=== PATIENT | female | born 1990 | race Caucasian/White ===

== ENCOUNTER 2019-04-25 15:12 | Outpatient (CLI) | payer OTHER, SELFPAY ==
[2019-04-25 15:32] LABS: Basophils Percent Auto 0.2 % (0.2-1.2); Eosinophils Absolute Auto 0.1 K/mm3 (0-0.3); Eosinophils Percent Auto 1.1 % (0-4.4); Hematocrit 40.4 % (37.0-47.0); Hemoglobin 13.7 g/dL (12.0-15.0); Immature Granulocyte Absolute 0.05 K/mm3 (0.00-0.031); Immature Granulocyte Percent A 0.5 % (0-0.5); Lymphocytes Absolute Auto 1.92 K/mm3 (0.9-3.2); Lymphocytes Percent Auto 19.3 % (18.3-44.2); Mean Corpuscular HGB Conc 33.9 g/dl (32-36); Mean Corpuscular Hemoglobin 31.7 pg (26-34); Mean Corpuscular Volume 93.5 fl (80-100); Mean Platelet Volume 11.1 fl (7.4-10.4); Monocytes Absolute Auto 0.6 K/mm3 (0.1-0.6); Monocytes Percent Auto 6.4 % (2.6-8.5); Neutrophils Absolute Auto 7.2 K/mm3 (1.3-6.7); Neutrophils Percent Auto 72.5 % (45.5-73.1); Platelet Count Result 249 k/mm3 (150-375); Red Blood Count 4.32 M/mm3 (4.2-5.4); Red Cell Distribution Width 12.6 % (11.5-14.5)
== END 2019-04-25 15:13 | disposition home or self-care (01) ==
LOC: ANHSURGERY 15:15
PROVIDERS: PCP Internal Medicine; Visit Provider Obstetrics & Gynecology
DX: N92.6 Irregular menstruation, unspecified (principal)
CPT/HCPCS: 36415; 85025; 86850; 86900; 86901

== ENCOUNTER 2019-05-04 00:51 | Day surgery (SDC) | payer OTHER, SELFPAY ==
[2019-04-23 15:47] VITALS: BMI 30.5
--- NOTE | 2019-05-02 08:53 | PM.IMHP ---
H&P: HPI History of Present Illness Chief complaint: uterine prolapse, pelvic pain, irreg bleeding Narrative: Britany Naqvi is a 28 year old female who is admitted for robotic total vaginectomy and bilateral salpingectomy. She has uterine prolapse. She has had pain, discomfort, and dyspareunia. She has undergone tubal ligation and passed. Ultrasound shows mildly enlarged uterus. She finds this to be debilitating and S for definitive therapy. Risks and benefits reviewed including but not exclusive of , aspiration pneumonia, bleeding, transfusion perforation of bowel bladder ureters or other internal organs need for laparotomy. She voiced understanding. She had all questions answered. She asked to proceed Review of Systems Review of Systems: All systems reviewed & are unremarkable except as noted in HPI and below PMFSH Family History Family History Grandparent Family history of gallbladder disease Father Asthma Mother Patient's mother is in good health Other Cerebrovascular accident Diabetes mellitus Social History Social History Smoking status: Never smoker Alcohol intake: never Meds Home Medications and Allergies Home Medications Medication Instructions Recorded Confirmed Type No Home Medications 04/23/19 04/23/19 History Allergies Allergy/AdvReac Type Severity Reaction Status Date / Time No Known Allergies Allergy Unverified 04/23/19 15:36 Exam Const: General: no acute distress Eyes: General: appearance normal, both eyes and all related structures Neck: Neck: supple and no JVD Thyroid: thyroid normal Resp: Effort & Inspection: normal respiratory effort Auscultation: clear to auscultation bilaterally Cardio: Rate: regular rate Rhythm: regular rhythm GI: Inspection: non-distended GI Palp: Yes Soft to palpation, No Tenderness to palpation present (GI) and No Guarding due to palpation present (GI) Auscultation: normal bowel sounds : External Female Exam: normal external appearance Speculum Exam - Vagina: normal appearance of the vagina Speculum Exam - Cervix: normal appearance of the cervix ( second-degree prolapse is present) Bimanual Exam- Adnexa, other: no masses Skin: General skin exam: no rashes or lesions noted Extrem: General: normal to inspection and no edema Psych: Mental Status: mental status grossly normal Affect: normal affect Assessment and Plan Additional Plan impression: Pelvic prolapse and pain Plan: Robotic total vaginal hysterectomy and bilateral salpingectomy.
[2019-05-04] VITALS (13 sets, daily range): BP systolic 113–135; BP diastolic 55–84; PULSE 52–76; RESP 12–19; TEMP 36.3–37.1; O2SAT 96–100
[2019-05-04] MEDS: LACTATED RINGERS 1,000 ML 30 ML IV CONT ×2 (06:50→09:40)
--- NOTE | 2019-05-04 06:59 | WPDHPUPDATE1 ---
History and Physical Update Update Date/Time: 05/04/19 06:59 History and Physical has been reviewed, including an updated exam of the patient. There are NO changes in the patient's condition. Risks, benefits, and alternatives have been discussed and questions answered. Patient agrees to proceed with procedure.
--- NOTE | 2019-05-04 07:19 | WPDANESEPPF ---
Anes - Initial Pre Proc Eval Procedure: Operation Date: 05/04/19 08:30 Proposed Procedures p Robotic Assisted Total Vaginal Hysterectomy, Bilateral Salpingectomy - Dajuan Gongora MD Date/Time: 05/04/19 07:19 Surgeon: Dajuan Gongora MD Pre Op Diagnosis: uterine prolapse, pelvic pain, irreg bleeding Patient Data Age: 28 Gender: F Height: 1.57 m Weight: 75.75 kg Allergies Allergy/AdvReac Type Severity Reaction Status Date / Time No Known Allergies Allergy Unverified 04/23/19 15:36 Home Medications Medication Instructions Recorded Confirmed Type hydrocodone-acetaminophen [[place]] 1 tablet PO Q4H PRN #30 tablet 05/04/19 Rx Patient hx anesthesia problems: none Family hx anesthesia problems: none PMFSH Past Medical History Medical History (Updated 05/04/19 @ 07:21 by Levar Connolly MD) Obesity Uterine prolapse Family History Family History Grandparent Family history of gallbladder disease Father Asthma Mother Patient's mother is in good health Other Cerebrovascular accident Diabetes mellitus Social History Social History Smoking status: Never smoker Alcohol intake: never Anes - Eval Final PreProcedure Day of Procedure 05/04/19 07:19 Patient weight: obese Heart: regular rate and rhythm Lungs: clear to auscultation and normal air movement Airway: Mallampati scale class II Neurological: alert and oriented Last oral intake: >/= 8 hours ASA classification: II Emergent: no Anesthetic plan: proceed Anesthesia type and monitoring: general ETT Informed Consent: The patient's anesthetic plan and its attendant risks and benefits were discussed with the patient/family/POA. Questions were solicited and answers provided to the satisfaction of the patient/family/POA.
[2019-05-04] MEDS: ceFAZolin 2 GM/D5W 50 ML 2 GM/50 ML BAG IVPB (07:58)
[2019-05-04] MEDS: IBUPROFEN IV 800 MG/200 ML 800 MG/200 ML BAG 400 MG IVPB (08:12)
--- NOTE | 2019-05-04 09:18 | P.OP_ITS ---
Procedure Note - Detailed Date of procedure: 05/04/19 Pre-op diagnosis: uterine prolapse, pelvic pain, irreg bleeding Surgeon: Dajuan Gongora MD Postop diagnosis: Uterine prolapse, pelvic pain, irregular bleeding Procedure: Robotic total vaginal hysterectomy and bilateral salpingectomy EBL: 50cc Complications none Findings: Enlarged uterus, adhesions from omentum to the anterior abdominal, tubes status post tubal ligation, normal-appearing ovaries Description of procedure: The patient was prepped and draped in the sterile fashion placed in the dorsal lithotomy position under excellent general trach anesthesia a weighted speculum was placed in posterior fornix of vagina. Anterior lip of the cervix grasped with single-tooth tenaculum. The uterus sounded to 9cm. Serial dilatation with fragmented dilators performed. This was followed by passing the 8. GAGE and number 2-1/2 cold cup. A 16 [place] catheter was placed draining clear urine. The weighted speculum was removed. Gloves were changed. A supraumbilical incision made in the Veress needle passed in the abdomen. Abdomen was filled with CO2 gas [id number]. The 8mm trocar advanced in the abdomen. Downside visualized. No injury seen. The patient placed in Trendelenburg and right and left lateral quadrant incisions made. The 8mm trocars were advanced through these incisions under direct visualization assuring no injury. A right upper quadrant incision was made and the 10mm trocar advanced under direct position assuring no injury the robot was docked. Attention was turned to the mental health counselor. The left round ligament was grasped. Cut. After of cauterization. A bladder flap was formed anteriorly. The bladder was noted to be somewhat adherent to more superiorly to the uterus and normal from her previous . This was taken down layer by layer until it could be clearly delineated and brought down caudally from the uterus. This was taken to the opposite round ligament which was clamped, burned, cut. Next the left fallopian tube portion was skeletonized and removed. This was repeated on the contralateral side. Conserving the left ovary the utero-ovarian ligament on the left was clamped, burned, cut and brought to the level of the previously cut round ligament. In like fashion on the right the after the fallopian tube in removed. The utero-ovarian ligaments clamped, cut, and burned. In brought to Little appears cut round ligament. The cardinal and broad ligaments on the left were serially skeletonized using sharp dissection and cautery. This was brought down to the level of the uterine vessels on the left these were large tortuous and as was expected. These were 0 individually clamped, burned, cut. This once hemostasis was assured on the left the right cardinal broad ligaments were serially skeletonized clamped, burned, cut and brought down lateral edge of the uterus and cervix until the uterine vessels on the left could be on the right could be easily visualized these were individually clamped, burned, cut. Blanching the uterus was noted a colpotomy incision was made in the cervix uterus portion of tube removed through the vagina. Blood loss was about 50cc at that point her last the vagina was then closed with continuous running 0V lock from lateral edge to lateral edge met the midline. Irrigation was undertaken until clear. All pedicles appeared hemostatic. The raw areas with vaginal cuff Striegel with the meter. The trocar sites were after was undocked. Prior to this gas min and incisions were closed with [place] Monocryl glue. The patient was awakened. She went to recovery in satisfactory condition. All sponge, needle, instrument counts were correct. There were no immediate complications
[2019-05-04] MEDS: ONDANSETRON INJ 4 MG/2 ML VIAL IV PUSH (09:46)
[2019-05-04] MEDS: DEXTROSE 5%/0.45% SOD CHL 1,000 ML 125 ML IV CONT (11:25)
--- NOTE | 2019-05-04 11:30 | PC.NURSE ---
This patient, Britany Naqvi, was received from PACU per bed to room 289 on 05/04/19 at 1045. Patient/family oriented to unit policies and routines
[2019-05-04] MEDS: ENOXAPARIN 40 MG/0.4 ML SYRINGE SUB-Q (13:22)
[2019-05-04] MEDS: IBUPROFEN 600 MG TABLET PO (21:32)
[2019-05-05 00:18] VITALS: BP 100/65; PULSE 58; RESP 12; TEMP 36.6
[2019-05-05 04:05] VITALS: BP 102/64; PULSE 58; RESP 12; TEMP 36.5
[2019-05-05 05:53] LABS: Basophils Percent Auto 0.3 % (0.2-1.2); Eosinophils Absolute Auto 0.1 K/mm3 (0-0.3); Eosinophils Percent Auto 0.6 % (0-4.4); Hematocrit 35.8 % (37.0-47.0); Hemoglobin 12.2 g/dL (12.0-15.0); Immature Granulocyte Absolute 0.09 K/mm3 (0.00-0.031); Immature Granulocyte Percent A 0.6 % (0-0.5); Lymphocytes Absolute Auto 1.42 K/mm3 (0.9-3.2); Lymphocytes Percent Auto 9.9 % (18.3-44.2); Mean Corpuscular HGB Conc 34.1 g/dl (32-36); Mean Platelet Volume 11.9 fl (7.4-10.4); Monocytes Absolute Auto 1.2 K/mm3 (0.1-0.6); Monocytes Percent Auto 8.6 % (2.6-8.5); Neutrophils Absolute Auto 11.5 K/mm3 (1.3-6.7); Platelet Count Result 214 k/mm3 (150-375); Red Blood Count 3.81 M/mm3 (4.2-5.4); Red Cell Distribution Width 12.4 % (11.5-14.5); White Blood Count 14.3 K/mm3 (4.5-10.0)
[2019-05-05] MEDS: DOCUSATE SODIUM 100 MG CAPSULE PO (07:37)
[2019-05-05] MEDS: IBUPROFEN 600 MG TABLET PO (07:39)
[2019-05-05 07:40] VITALS: BP 116/66; PULSE 61; RESP 18; TEMP 36.4
[2019-05-05] MEDS: ENOXAPARIN 40 MG/0.4 ML SYRINGE SUB-Q (07:41)
--- NOTE | 2019-05-05 09:33 | PM.GYNPNOP ---
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 Doing well. P: Home to f/u 2 weeks. Time Spent With Patient Time with patient: less than 15 minutes QUILTING SUPERVISOR- PN:Subj Post-Op Subjective Date/time seen: 05/05/19 09:33 Interval history: Pain OK. Tolerating diet. Voiding. Would like to go home. Exam Narrative: Exam Narrative: AVSS I/O OK ABD soft, nontender. Incisions c/d/i. EXT nontender QUILTING SUPERVISOR - PN: Obj Data Vital Signs Vital Signs: Vital Signs - 24 hr 05/04/19 09:40 05/04/19 09:55 05/04/19 10:10 Temperature 36.9 C Pulse Rate 63 58 L 59 L Respiratory Rate 16 19 15 Blood Pressure 122/77 135/78 119/71 Pulse Oximetry 98 100 100 05/04/19 10:25 05/04/19 10:34 05/04/19 10:50 Temperature 37.0 C Pulse Rate 62 52 L Respiratory Rate 16 15 16 Blood Pressure 124/62 123/69 122/78 Pulse Oximetry 99 99 99 05/04/19 11:00 05/04/19 11:30 05/04/19 12:00 Temperature 37.0 C Pulse Rate 60 57 L 58 L Respiratory Rate 16 16 16 Blood Pressure 135/79 124/68 121/84 Pulse Oximetry 97 100 100 05/04/19 13:00 05/04/19 14:00 05/04/19 19:49 Temperature 37.1 C 36.8 C Pulse Rate 58 L 58 L 58 L Respiratory Rate 16 16 12 Blood Pressure 123/76 124/73 113/72 Pulse Oximetry 98 96 05/05/19 00:18 05/05/19 04:05 05/05/19 07:40 Temperature 36.6 C 36.5 C 36.4 C Pulse Rate 58 L 58 L 61 Respiratory Rate 12 12 18 Blood Pressure 100/65 102/64 116/66 Pulse Oximetry Intake/Output Intake/Output: Intake & Output 05/02/19 05/03/19 05/04/19 05/05/19 23:59 23:59 23:59 23:59 Intake Total 2890 1400 Output Total 303 0674 Balance 2215 -550 Meds/Results Medications: Active Medications Generic Name Dose Route Start Last Admin Trade Name Freq PRN Reason Stop Dose Admin Hydrocodone Bitart/Acetaminophen 1 tab 05/04/19 10:40 05/05/19 07:38 [place] 5-325 Mg PO 1 tab Q3H PRN Administration Pain Rated 5 or Less Hydrocodone Bitart/Acetaminophen 1 tab 05/04/19 10:40 [place] 10-325 Mg PO Q3H PRN Pain Rated 6 or Greater Docusate Sodium 100 mg 05/04/19 10:40 05/05/19 07:37 Colace Capsule PO 100 mg BID LINDA Administration Enoxaparin Sodium 40 mg 05/04/19 10:40 05/05/19 07:41 Lovenox SUB-Q 40 mg DAILY LINDA Administration Dextrose/Sodium Chloride 1,000 mls @ 125 mls/hr 05/04/19 10:40 05/04/19 19:30 Dextrose 5% Sodium Chloride 0.45% IV CONT Infused .Q8H LINDA Infusion Ibuprofen 600 mg 05/04/19 10:40 05/05/19 07:39 Motrin PO 600 mg Q6H PRN Administration Cramping Ketorolac Tromethamine 30 mg 05/04/19 10:40 Toradol Inj IV PUSH 05/09/19 10:41 Q6H PRN Pain Rated 4-6 Naloxone HCl 0.1 mg 05/04/19 10:40 Narcan IV PUSH Q2M PRN Respiratory rate less than 10 Ondansetron HCl 4 mg 05/04/19 10:40 Zofran Inj IV PUSH Q6H PRN Nausea And Vomiting Simethicone 80 mg 05/04/19 10:40 Mylicon PO Q2H PRN Gas Labs CBC & Chem 7: 05/05/19 04:02 Labs: Laboratory Results - last 24 hr 05/05/19 04:02 WBC 14.3 H RBC 3.81 L Hgb 12.2 Hct 35.8 L MCV 94.0 MCH 32.0 MCHC 34.1 RDW 12.4 Plt Count 214 MPV 11.9 H Immature Gran % (Auto) 0.6 H Neut % (Auto) 80.0 H Lymph % (Auto) 9.9 L [place] % (Auto) 8.6 H Eos % (Auto) 0.6 Baso % (Auto) 0.3 Lymph # (Auto) 1.42 [place] # (Auto) 1.2 H Eos # (Auto) 0.1 Baso # (Auto) 0.0 Abs Immat Gran (auto) 0.09 H Absolute Neuts (auto) 11.5 H Absolute Nucleated RBC 0.0 Nucleated RBC % 0.0
--- NOTE | 2019-05-05 09:38 | P.DS_ITS ---
DS: Diagnosis Admitting Diagnosis Admitting Diagnosis: Pelvic pain Uterine prolapse Irregular vaginal bleeding DS: Data Data Completed and Pending Pending studies at discharge: Pending at discharge 05/04/19 09:36 Surgical [PTH] Routine Labs on day of discharge: Labs from last 24 hours 05/05/19 04:02 WBC 14.3 H RBC 3.81 L Hgb 12.2 Hct 35.8 L MCV 94.0 MCH 32.0 MCHC 34.1 RDW 12.4 Plt Count 214 MPV 11.9 H Immature Gran % (Auto) 0.6 H Neut % (Auto) 80.0 H Lymph % (Auto) 9.9 L [place] % (Auto) 8.6 H Eos % (Auto) 0.6 Baso % (Auto) 0.3 Lymph # (Auto) 1.42 [place] # (Auto) 1.2 H Eos # (Auto) 0.1 Baso # (Auto) 0.0 Abs Immat Gran (auto) 0.09 H Absolute Neuts (auto) 11.5 H Absolute Nucleated RBC 0.0 Nucleated RBC % 0.0 Discharge Plan Discharge Patient Disposition: Home, Self-Care Discharge Instructions: Call or return if temperature above 100.4? F, increased abdominal pain, increased vaginal bleeding or any new problems. Stand Alone Forms: General Discharge Instructions Follow-up/Referrals: Dajuan Gongora MD [Physician] - (2 weeks) Discharge Medications: New hydrocodone-acetaminophen [[place]] 5-325 mg tablet 1 tablet PO Q4H PRN (Reason: pain) Qty: 30 RF: 0 Primary Care Provider: KimberlyRobbin Attending physician on admission: Dajuan Gongora
--- NOTE | 2019-05-05 09:49 | P.PNAN_ITS ---
Anes - Prog Note Post-Op Date/Time: 05/05/19 09:49 Cardiovascular status: normal Respiratory status: normal Airway patency: baseline Mental status: baseline Post-Op hydration status: normal Vital Signs: Last Vital Signs Temp 36.4 C 05/05/19 07:40 Pulse 61 05/05/19 07:40 Resp 18 05/05/19 07:40 BP 116/66 05/05/19 07:40 Pulse Ox 96 05/04/19 14:00 I/O: Intake & Output 05/04/19 05/05/19 05/05/19 23:59 07:59 15:59 Intake Total 1000 1400 Output Total 1950 Balance 1000 -550 Laboratory Tests 05/05/19 04:02 05/05/19 04:02 WBC 14.3 H RBC 3.81 L Hgb 12.2 Hct 35.8 L MCV 94.0 MCH 32.0 MCHC 34.1 RDW 12.4 Plt Count 214 MPV 11.9 H Immature Gran % (Auto) 0.6 H Neut % (Auto) 80.0 H Lymph % (Auto) 9.9 L [place] % (Auto) 8.6 H Eos % (Auto) 0.6 Baso % (Auto) 0.3 Lymph # (Auto) 1.42 [place] # (Auto) 1.2 H Eos # (Auto) 0.1 Baso # (Auto) 0.0 Abs Immat Gran (auto) 0.09 H Absolute Neuts (auto) 11.5 H Absolute Nucleated RBC 0.0 Nucleated RBC % 0.0 Post-procedural complaints: none Patient Feedback: Patient satisfied with anesthetic care.
== END 2019-05-05 10:07 | disposition home or self-care (01) ==
LOC: ANHSURGERY 07:00 → ANHOB2 11:26
PROVIDERS: PCP Internal Medicine; Visit Provider Obstetrics & Gynecology
PROC: (CPT 58552; principal; 2019-05-04 08:30)
DX: N81.2 Incomplete uterovaginal prolapse (principal); R10.2 Pelvic and perineal pain; N92.6 Irregular menstruation, unspecified; Z98.51 Tubal ligation status; E66.9 Obesity, unspecified; Z68.30 Body mass index [BMI] 30.0-30.9, adult
CPT/HCPCS: 58552; S2900; 36415; 85025; 88307; 99199; A9270; J0690; J1100; J1650; J1741; J2250; J2405; J2704; J2710; J3010; J7030; J7120

== ENCOUNTER 2019-10-17 00:38 | Outpatient (CLI) | payer OTHER, SELFPAY ==
[2019-10-17 18:41] LABS: SARS-CoV-2 RNA PCR Negative
== END 2019-10-17 00:39 | disposition home or self-care (01) ==
LOC: ANHCOVIDDT 00:38
PROVIDERS: PCP Internal Medicine; Visit Provider Obstetrics & Gynecology
DX: Z01.812 Encounter for preprocedural laboratory examination (principal); Z20.828 Contact with and (suspected) exposure to other viral communicable diseases
CPT/HCPCS: 36415; 86850; 86900; 86901; 87635; C9803; U0003

== ENCOUNTER 2019-10-17 08:15 | Outpatient (CLI) | payer OTHER, SELFPAY | END 2019-10-17 08:16 | disposition home or self-care (01) | LOC: ANHLAB 08:17 | PROVIDERS: PCP Internal Medicine; Visit Provider Obstetrics & Gynecology | DX: R10.2 Pelvic and perineal pain (principal); Z01.812 Encounter for preprocedural laboratory examination | CPT/HCPCS: 36415; 86850; 86900; 86901 ==

== ENCOUNTER 2019-10-19 01:25 | Day surgery (SDC) | payer OTHER, SELFPAY ==
[2019-10-05 13:24] VITALS: BMI 30.5
--- NOTE | 2019-10-17 07:48 | PM.IMHP ---
H&P: HPI History of Present Illness Date/Time: 10/17/19 07:48 Chief complaint: right ovarian cyst, pelvic pain Narrative: Britany Naqvi is a 29 year old female 2 para 2 status post hysterectomy is admitted for laparoscopic right salpingo-oophorectomy. She is status post hysterectomy and has a enlarged ovary noted by ultrasound. Risks and benefits were reviewed and all great detail. She received the [employer] handout entitled laparoscopy. She had all questions answered. She asked to proceed Review of Systems Review of Systems: All systems reviewed & are unremarkable except as noted in HPI and below PMFSH Past Medical History Medical History Obesity Uterine prolapse Family History Family History Grandparent Family history of gallbladder disease Father Asthma Mother Patient's mother is in good health Other Cerebrovascular accident Diabetes mellitus Social History Social History Smoking packs per day: 1 Smoking cigarettes per day: 20.0 Years smoked: 4 Smoking pack-years: 4.00 Smoking status: Current some day smoker Alcohol intake: current Drinks per week: 1 Substance use: current Substance use type: marijuana Last use: 10/04/19 Spiritual care concerns: No Meds Home Medications and Allergies Home Medications Medication Instructions Recorded Confirmed Type No Home Medications 10/05/19 10/05/19 History Allergies Allergy/AdvReac Type Severity Reaction Status Date / Time No Known Allergies Allergy Unverified 10/05/19 13:24 Exam Const: General: no acute distress Eyes: General: appearance normal, both eyes and all related structures Neck: Neck: supple and no JVD Thyroid: thyroid normal Resp: Effort & Inspection: normal respiratory effort Auscultation: clear to auscultation bilaterally Cardio: Rate: regular rate Rhythm: regular rhythm GI: Inspection: non-distended GI Palp: Yes Soft to palpation, No Tenderness to palpation present (GI) and No Guarding due to palpation present (GI) Auscultation: normal bowel sounds : General: Yes bladder normal to inspection External Female Exam: normal external appearance Speculum Exam - Vagina: normal appearance of the vagina Speculum Exam - Cervix: Cervix absent Bimanual exam- vagina & uterus: uterus absent Bimanual Exam- Adnexa, other: tender and Adnexal mass present (right) Skin: General skin exam: no rashes or lesions noted Extrem: General: normal to inspection and no edema Psych: Mental Status: mental status grossly normal Affect: normal affect Assessment and Plan Additional Plan impression: Complex right ovarian cyst Plan: Laparoscopic right salpingo-oophorectomy
[2019-10-19] VITALS (7 sets, daily range): BP systolic 111–145; BP diastolic 55–93; PULSE 59–73; RESP 12–20; TEMP 36.5–36.8; O2SAT 95–100
--- NOTE | 2019-10-19 06:52 | WPDHPUPDATE1 ---
History and Physical Update Update Date/Time: 10/19/19 06:52 History and Physical has been reviewed, including an updated exam of the patient. There are NO changes in the patient's condition. Risks, benefits, and alternatives have been discussed and questions answered. Patient agrees to proceed with procedure.
[2019-10-19] MEDS: LACTATED RINGERS 1,000 ML 30 ML IV CONT ×2 (12:20→15:09)
[2019-10-19] MEDS: ACETAMINOPHEN 500 MG TABLET 1000 MG PO (12:36)
[2019-10-19] MEDS: KETOROLAC 15 MG/ML VIAL (*BKC) IV PUSH (12:36)
--- NOTE | 2019-10-19 12:43 | P.PNAN_ITS ---
Anes - Initial Pre Proc Eval Procedure: Operation Date: 10/19/19 14:15 Proposed Procedures p Laparoscopy Right Salpingo-Oophorectomy - Dajuan Gongora MD Date/Time: 10/19/19 12:43 Surgeon: Dajuan Gongora MD Pre Op Diagnosis: right ovarian cyst, pelvic pain Patient Data Age: 29 Gender: F Height: 5 ft 2 in Weight: 74.6 kg Last Vital Signs Temp 36.5 C 10/19/19 12:13 Pulse 71 10/19/19 12:13 Resp 20 10/19/19 12:13 BP 115/78 10/19/19 12:13 Pulse Ox 98 10/19/19 12:13 Allergies Allergy/AdvReac Type Severity Reaction Status Date / Time No Known Allergies Allergy Unverified 10/19/19 12:39 Home Medications Medication Instructions Recorded Confirmed Type hydrocodone-acetaminophen [[place]] 1 tablet PO Q4H PRN #30 tablet 10/19/19 Rx Patient hx anesthesia problems: none Family hx anesthesia problems: none PMFSH Past Medical History Medical History Obesity Sarcoid Uterine prolapse Family History Family History Grandparent Family history of gallbladder disease Father Asthma Mother Patient's mother is in good health Other Cerebrovascular accident Diabetes mellitus Social History Social History Smoking packs per day: 1 Smoking cigarettes per day: 20.0 Years smoked: 4 Smoking pack-years: 4.00 Smoking status: Current some day smoker Alcohol intake: current Drinks per week: 1 Substance use: current Substance use type: marijuana Last use: 10/04/19 Spiritual care concerns: No Anes - Eval Final PreProcedure Day of Procedure 10/19/19 12:43 Patient weight: obese Heart: regular rate and rhythm Lungs: decreased breath sounds Airway: Mallampati scale class II Neurological: alert and oriented Last oral intake: >/= 8 hours ASA classification: III Emergent: no Anesthetic plan: proceed Anesthesia type and monitoring: general ETT and standard monitoring Informed Consent: The patient's anesthetic plan and its attendant risks and benefits were discussed with the patient/family/POA. Questions were solicited and answers provided to the satisfaction of the patient/family/POA.
--- NOTE | 2019-10-19 14:53 | PM.PROC ---
Procedure Note - Detailed Date of procedure: 10/19/19 Pre-op diagnosis: right ovarian cyst, pelvic pain Surgeon: Dajuan Gongora MD Postop diagnosis: Complex right ovarian cyst /pelvic pain /lysis of adhesions Procedure: Laparoscopic right oophorectomy /lysis of adhesions Anesthesia: General tracheal EBL: 5Cc Complications: None Findings: Absent uterus and tubes. Complex right ovarian cyst. Pelvic adhesions Description of procedure: The patient was prepped and draped in the normal sterile fashion placed in the dorsal lithotomy position. Under excellent general endotracheal anesthesia weighted speculum was placed in posterior fornix of vagina. A sponge stick was placed in the bladder emptied of clear urine. A weighted speculum was removed. Gloves were changed and a supraumbilical incision made. Veress needle was passed in the abdomen. The abdomen was filled with CO2 gas [id number]. The 5mm trocar was advanced under direct visualization assuring no injury. The patient was placed in Trendelenburg and a suprapubic incision made. 5Mm trocar was advanced under direct visualization. A right lower quadrant incision made the 10mm trocar advanced under direct visualization assuring no injury. The above findings were seen the adhesions were sharply dissected using the Endo Hailey with tension being pulled on structures to clear carefully avoiding injury to underlying bowel structures. Once this was clear the complex right ovarian cyst was dealt with. The infundibulopelvic structure was clamped, cut and this was placed in an Endo-Catch and removed through the right lower quadrant. Irrigation was undertaken to clear. There were no immediate complications. The trocars removed after gas removed from the abdomen and the incisions closed with 4 0 Monocryl glue all sponge, needle instrument counts were correct. There were no immediate complications
== END 2019-10-19 16:56 | disposition home or self-care (01) ==
PROVIDERS: PCP Internal Medicine; Visit Provider Obstetrics & Gynecology
PROC: (CPT 49320; principal; 2019-10-19 14:15)
DX: N83.01 Follicular cyst of right ovary (principal); N73.6 Female pelvic peritoneal adhesions (postinfective); Z90.710 Acquired absence of both cervix and uterus; E66.9 Obesity, unspecified; Z68.30 Body mass index [BMI] 30.0-30.9, adult; D86.9 Sarcoidosis, unspecified; F17.210 Nicotine dependence, cigarettes, uncomplicated
CPT/HCPCS: 58661; 88305; A9270; J0330; J1100; J1885; J2250; J2405; J2704; J2710; J3010; J7030; J7120; Q9968

== ENCOUNTER 2020-03-22 12:41 | Emergency (ER) | payer OTHER, SELFPAY ==
--- NOTE | ~2020-03-22 | CT_ITS ---
EXAMINATION: CT abdomen pelvis w con DATE: 03/22/2020 14:14 INDICATION: Left flank pain TECHNIQUE: Computed tomography (CT) of the abdomen and pelvis was performed with 100 cc Omnipaque 350 intravenous contrast. The dose-length product was 528.51 mGy-cm. Automated exposure control and iter ative reconstruction technique were employed. COMPARISON: CT dated 02/21/2017. FINDINGS: There is dependent atelectasis. Heart size normal. No significant pleural or pericardial ef fusion. No significant vascular abnormality. No lymphadenopathy. Status post cholecystectomy. The liver, spleen, pancreas, adrenal glands and kidneys are unremarkable . Nonobstructive bowel gas pattern. Small fat-containing umbilical hernia. Trace gas present in the b ladder, likely from recent instrumentation. No free air or free fluid. No acute osseous abnormality. IMPRESSION: 1. No acute abnormality of the abdomen. Reviewed, dictated and finalized at location A. AGE COLLECTOR DRIVER
[2020-03-22 12:47] VITALS: BP 128/76; PULSE 88; RESP 16; TEMP 36.9; O2SAT 100
[2020-03-22 13:12] LABS: Basophils Percent Auto 0.4 % (0.2-1.2); Eosinophils Absolute Auto 0.2 K/mm3 (0-0.3); Hematocrit 39.2 % (37.0-47.0); Hemoglobin 13.3 g/dL (12.0-15.0); Immature Granulocyte Absolute 0.04 K/mm3 (0.00-0.031); Immature Granulocyte Percent A 0.5 % (0-0.5); Lymphocytes Absolute Auto 1.98 K/mm3 (0.9-3.2); Lymphocytes Percent Auto 27.1 % (18.3-44.2); Mean Corpuscular HGB Conc 33.9 g/dl (32-36); Mean Corpuscular Hemoglobin 32.9 pg (26-34); Mean Platelet Volume 11.5 fl (7.4-10.4); Monocytes Absolute Auto 0.7 K/mm3 (0.1-0.6); Monocytes Percent Auto 9.4 % (2.6-8.5); Neutrophils Absolute Auto 4.4 K/mm3 (1.3-6.7); Neutrophils Percent Auto 59.6 % (45.5-73.1); Platelet Count Result 240 k/mm3 (150-375); Red Blood Count 4.04 M/mm3 (4.2-5.4); Red Cell Distribution Width 13.4 % (11.5-14.5); White Blood Count 7.3 K/mm3 (4.5-10.0)
[2020-03-22 13:15] LABS: Add Urine Microscopic? YES; Appearance Urine Clear (Clear); Bacteria Urine Trace /hpf; Bilirubin Urine Negative (Negative); Blood Urine Negative (Negative); Color Urine Yellow (Yellow); Glucose Urine UA Negative (Negative); Ketones Urine Negative (Negative); Leukocyte Esterase Ur Trace LEU/UL (Negative); Mucus Urine Rare /lpf; Nitrate Urine Negative (Negative); Protein Urine Negative (Negative); RBC Urine 0-2 /hpf (0-2); Specific Grav Ur 1.015 (1.001-1.035); Squamous Epithelial Cell Urine Many /hpf (Few); Urobilinogen Urine Negative mg/dL (<2.0)
[2020-03-22] MEDS: SODIUM CHLORIDE 0.9% IV 1,000 ML 999 ML IV CONT (13:17)
[2020-03-22] MEDS: KETOROLAC 15 MG/ML VIAL (*BKC) IV PUSH (13:17)
[2020-03-22] MEDS: ONDANSETRON INJ 4 MG/2 ML VIAL IV PUSH (13:17)
--- NOTE | 2020-03-22 13:18 | ED.ABDPAIN ---
HPI - Abdominal Pain General Chief Complaint: Abdominal Pain Stated Complaint: appendicitis Time Seen by Provider: 03/22/20 12:48 Source: patient, RN notes reviewed and old records reviewed History of Present Illness HPI narrative: 29-year-old female presents to emergency department for intermittent left flank pain for the past week, worse the past 3 hours. Patient states she has never had this in the past before. She does report some nausea, no vomiting. She has taken medication to help with the pain. No chest pain or shortness of breath. No fever or chills. She does report some pain with urination. Related Data Home Medications Medication Instructions Recorded Confirmed sertraline mg 03/22/20 Allergies Allergy/AdvReac Type Severity Reaction Status Date / Time No Known Allergies Allergy Verified 03/22/20 12:47 Review of Systems Review of Systems: Narrative: CONSTITUTIONAL: Denies fever, chills, or sweats. EYES: Denies visual changes, redness, or discharge. ENT: Denies rhinorrhea, congestion, sore throat, or otalgia. CARDIOVASCULAR: Denies chest pain, palpitations, or edema. RESPIRATORY: Denies cough or dyspnea. GASTROINTESTINAL: Reports left flank pain, and nausea. GENITOURINARY: Denies dysuria or hematuria. SKIN: Denies rash or itching. MUSCULOSKELETAL: Denies back pain, joint pain, or myalgia. NEUROLOGIC: Denies headache, numbness, dizziness, or weakness. PSYCHIATRIC: Denies anxiety or depression. All systems reviewed & are unremarkable except as noted in HPI and below (ROS) [facility] Past Medical History Medical History (Updated 03/22/20 @ 15:41 by Emerson Ulrich DO) Obesity Sarcoid Uterine prolapse Family History Family History Grandparent Family history of gallbladder disease Father Asthma Mother Patient's mother is in good health Other Cerebrovascular accident Diabetes mellitus Social History Social History Smoking packs per day: 1 Smoking cigarettes per day: 20.0 Years smoked: 4 Smoking pack-years: 4.00 Smoking status: Current some day smoker Alcohol intake: current Drinks per week: 1 Substance use: current Substance use type: marijuana Last use: 10/04/19 Gender identity (if verbalized by the patient): Female Spiritual care concerns: No Exam Narrative: Exam Narrative: GENERAL: Well-appearing, well-nourished, and in no acute distress. HEAD: Normocephalic, atraumatic. EYES: PERRLA and EOMI. ENT: Nares clear, no rhinorrhea or epistaxis. Mucous membranes moist. NECK: Supple. CHEST: Clear to auscultation. No respiratory distress. HEART: Regular rate and rhythm. No murmur heard. Normal peripheral pulses. ABDOMEN: Left flank TTP EXTREMITIES: Normal range of motion. No edema. SKIN: Warm, dry, no rash. NEURO: No focal deficits. Alert and oriented x3. PSYCH: Normal mood and affect. Course ASSET ADMINISTRATOR/PA Physician Supervision [id number] -reevaluated patient, pain improved. Patient has unremarkable blood work and CT scan. Concern for muscle strain causing her symptoms. Counseled patient to take Tylenol Motrin/ibuprofen as needed for pain. Follow-up with primary care physician within 1 week. Return to emergency department if symptoms persist, worsen, or other concerns. Vital Signs Vital signs: Vital Signs Temperature 36.9 C 03/22/20 12:47 Pulse Rate 88 03/22/20 12:47 Respiratory Rate 16 03/22/20 12:47 Blood Pressure 128/76 03/22/20 12:47 Pulse Oximetry 100 03/22/20 12:47 Temperature 36.9 C 03/22/20 12:47 Pulse Rate 70 03/22/20 15:51 Respiratory Rate 20 03/22/20 15:51 Blood Pressure 127/83 03/22/20 15:51 Pulse Oximetry 99 03/22/20 15:51 MDM - Abdominal Pain Medical Records Attestation: I reviewed the patient's medical records. Lab Data Attestation: I reviewed the patient's lab results. Result diagrams: 03/22/20 1
[2020-03-22 13:29] LABS: Alanine Aminotransferase 78 U/L (4-35); Albumin Level 3.8 g/dL (3.5-5.1); Alkaline Phosphatase 93 U/L (38-126); Anion Gap 6 mmol/L (8-16); Aspartate Amino Transferase 59 U/L (14-36); Bilirubin,Total 0.3 mg/dL (0.2-1.3); Blood Urea Nitrogen 6 mg/dL (7-17); Calcium 8.4 mg/dL (8.4-10.2); Carbon Dioxide 24 mmol/L (22-30); Chloride 108 mmol/L (98-107); Estimated CRCL calculation 96 ml/min; Estimated Glomerular Filt Rate > 60; Glucose 85 mg/dL (65-105); Lipase 66 U/L (23-300); Potassium 3.6 mmol/L (3.4-5.0); Sodium 138 mmol/L (137-145)
[2020-03-22 15:30] VITALS: BP 127/83; PULSE 70; RESP 20; O2SAT 99
[2020-03-22 15:51] VITALS: BP 127/83; PULSE 70; RESP 20; O2SAT 99
== END 2020-03-22 15:53 | disposition home or self-care (01) ==
PROVIDERS: Emergency Provider Emergency Medicine; PCP Internal Medicine
DX: R10.9 Unspecified abdominal pain (principal); E66.9 Obesity, unspecified; Z68.29 Body mass index [BMI] 29.0-29.9, adult; D86.9 Sarcoidosis, unspecified; F17.210 Nicotine dependence, cigarettes, uncomplicated
CPT/HCPCS: 36415; 74177; 80053; 81001; 83690; 85025; 87086; 87088; 96361; 96374; 96375; 99284; J1885; J2405; J7030; Q9967

== ENCOUNTER 2021-08-05 21:29 | Emergency (ER) | payer OTHER, SELFPAY ==
--- NOTE | ~2021-08-05 | XR_ITS ---
EXAMINATION: XR hand LT min 3V INDICATION: Right hand pain TECHNIQUE: Three views of the right hand are obtained. COMPARISON: None available FINDINGS: There is no fracture, dislocation, or subluxation. The bones, soft tissues, and joint space s are normal. IMPRESSION: 1. No acute osseous abnormality. Reviewed, dictated and finalized at location F.
[2021-08-05 21:38] VITALS: BP 124/76; PULSE 71; RESP 18; TEMP 36.2; O2SAT 100
--- NOTE | 2021-08-05 22:38 | ED.UPPEXIN ---
HPI - Extremity Injury (Upper) General Chief Complaint: Extremity Injury, Upper Stated Complaint: right hand injury/pain Time Seen by Provider: 08/05/21 21:56 History of Present Illness HPI narrative: Patient is a 30-year-old female who presents ER with swelling to the dorsal aspect of her right hand near the wrist. Reports she was walking today when she bumped her hand. Did not think twice about the injury but then later noticed swelling. It is a nodular region. It is not particularly painful but she does have discomfort with attempting to lift things. No numbness or tingling going into the hand. 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 Normal range of motion of the wrist. Related Data Home Medications Medication Instructions Recorded Confirmed sertraline 50 mg tablet mg 03/22/20 Allergies Allergy/AdvReac Type Severity Reaction Status Date / Time No Known Allergies Allergy Verified 03/22/20 12:47 Review of Systems Musculoskeletal: Musculoskeletal: Denies arthralgias, Denies joint swelling and Denies muscle cramps Comments: Swelling of the dorsal aspect of the hand right Integumentary/Breasts: Skin/Breast: Denies erythema, Denies rash and Denies skin ulcer Neurologic: Denies focal weakness and Denies numbness PMFSH Past Medical History Medical History (Updated 08/05/21 @ 22:44 by Stuart Pierre MD) Obesity Sarcoid Sarcoidosis of lung Uterine prolapse Surgical History Surgical History (Updated 08/05/21 @ 22:40 by Stuart Pierre MD) No pertinent past surgical history Family History Family History Grandparent Family history of gallbladder disease Father Asthma Mother Patient's mother is in good health Other Cerebrovascular accident Diabetes mellitus Social History Social History Smoking packs per day: 1 Smoking cigarettes per day: 20.0 Years smoked: 4 Smoking pack-years: 4.00 Smoking status: Current some day smoker Alcohol intake: current Drinks per week: 1 Substance use: current Substance use type: marijuana Last use: 10/04/19 Gender identity (if verbalized by the patient): Female Spiritual care concerns: No Exam Narrative: GENERAL: Well-appearing, well-nourished, and in no acute distress. HEAD: Normocephalic, atraumatic. CHEST: Clear to auscultation. No respiratory distress. HEART: Regular rate and rhythm. No murmur heard. Normal peripheral pulses. EXTREMITIES: Normal range of motion. No edema. Nodular swelling of the right hand near the wrist that is nontender and is not red, there is increased pain over the wrist proximal to the nodule and no discomfort distally. 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 No mobility of the nodule with flexion or extension of the fingers or wrist. SKIN: Warm, dry, no rash. NEURO: Alert and oriented x3. PSYCH: Normal mood and affect. Course Course Emergency Course: [place] to be an injury to the tendon sheath. Recommend rest, ice, compression, elevation. We will give him follow-up if needed. Vital Signs Vital signs: Vital Signs Temperature 97.2 F L 08/05/21 21:38 Pulse Rate 71 08/05/21 21:38 Respiratory Rate 18 08/05/21 21:38 Blood Pressure 124/76 08/05/21 21:38 Pulse Oximetry 100 08/05/21 21:38 Oxygen Delivery Room Air 08/05/21 21:38 Temperature 97.2 F L 08/05/21 21:38 Pulse Rate 71 08/05/21 21:38 Respiratory Rate 18 08/05/21 21:38 Blood Pressure 124/76 08/05/21 21:38 Pulse Oximetry 100 08/05/21 21:38 Oxygen Delivery Room Air 08/05/21 21:38 MDM - Extremity Injury (Upper) Imaging Data Radiologist's impression: ITS Impressions Hand X-Ray 08/05/21 22:02 IMPRESSION: 1. No acute osseous abnormality. Discharge Plan Discharge Clinical Impression: Hand swelling, Nodule of extensor tendon sheath Patient Disposition: Home, Self-Care Condition: Stable
== END 2021-08-05 22:56 | disposition home or self-care (01) ==
PROVIDERS: Emergency Provider Emergency Medicine; PCP Internal Medicine
DX: M67.841 Other specified disorders of synovium, right hand (principal); D86.0 Sarcoidosis of lung; E66.9 Obesity, unspecified; Z68.23 Body mass index [BMI] 23.0-23.9, adult; F17.210 Nicotine dependence, cigarettes, uncomplicated
CPT/HCPCS: 73130; 99283

== ENCOUNTER 2021-09-04 10:13 | Outpatient (CLI) | payer OTHER, SELFPAY ==
--- NOTE | ~2021-09-04 | XR_ITS ---
XR wrist RT min 3V DATE: 09/04/2021 10:40 INDICATION: Right wrist ulnar pain, knot TECHNIQUE: 5 views COMPARISON: None FINDINGS: No fracture or dislocation, periosteal reaction or bone destruction. Joint spaces are prese rved. No erosive change or chondrocalcinosis. IMPRESSION: Negative Reviewed, dictated and finalized at location A. IMPRESSION: Negative
== END 2021-09-04 10:14 | disposition home or self-care (01) ==
LOC: ANHIMG 10:15
PROVIDERS: PCP Plastic Surgery; Visit Provider Plastic Surgery
DX: M19.031 Primary osteoarthritis, right wrist (principal)
CPT/HCPCS: 73110

== ENCOUNTER 2021-10-08 00:20 | Day surgery (SDC) | payer OTHER, SELFPAY ==
[2021-10-07 09:35] VITALS: BMI 24.0
--- NOTE | 2021-10-07 09:44 | PC.NURSE ---
Report to the Outpatient Waiting Room, entrance under the green pavilion located off [facility], at time 0600 on date 10/08/21. OR Time: 0730. - You and your visitor will be asked a series of questions to screen for COVID 19 for your protection. - Only one visitor is allowed at this time. - The patient visitor is requested to leave or wait in car when not with patient. - A mask is required within the hospital. Patients may have clear liquids (water, carbonated beverages, clear teas, apple juice) until 3 hours prior to surgery with a maximum of 20 ounces. - No food from midnight until time of surgery Take the following medications with a SIP of water the morning of surgery: N/A Medications to discontinue per physician: N/A Date to take last dose: N/A Please no make-up, nail macanese, hairspray, perfume, deodorant, or body powder the day of surgery. No jewelry (including any body piercings) or valuables the day of surgery, leave them at home. Please take a shower or bath the night before, or the morning of, surgery with an antibacterial soap. Wear comfortable, loose fitting clothing. - Jewelry must be removed prior to entering the operating room. Rings and piercings that are not removed may be cut off. - The hospital will not accept responsibility for valuables. - Please leave all valuables, including medications, at home the day of surgery. If you are going home after surgery, a licensed pick up truck driver must drive you home. - NO public transportation without another adult. - We recommend that an adult stay with you for 24 hours following discharge. - We also recommend that you do not drive, make important decision, drink alcoholic beverages, or take any drugs that were not prescribed by your health care provider for at least 24 hours after your discharge time. Follow any additional instructions given to you from your surgeon. If you or anyone in your household have experienced Covid symptoms in the past week, please notify your surgeon or the nurse liaison at the phone number below for possible testing. Telephone instructions given to PT - KATHIE KEY and asked if any additional questions and then verbalized understanding. Patient advised to call surgeon office or pre surgery nurse liaison [phone] if any additional questions.
--- NOTE | 2021-10-07 10:44 | WPDANESEPPF ---
Anes - Initial Pre Proc Eval Procedure: Operation Date: 10/08/21 07:30 Proposed Procedures p Excision of Subcutaneous Mass Right Dorsal Wrist - Meet Estes MD Date/Time: 10/07/21 10:44 Surgeon: Meet Estes MD Pre Op Diagnosis: Subcutaneous Mass Rt Dorsal Wrist Patient Data Age: 31 Gender: F Height: 1.59 m Weight: 61.24 kg Allergies Allergy/AdvReac Type Severity Reaction Status Date / Time No Known Allergies Allergy Verified 10/08/21 06:35 Home Medications Medication Instructions Recorded Confirmed Type No Home Medications 10/07/21 10/08/21 History Patient hx anesthesia problems: none Family hx anesthesia problems: none Results Review: All pre-operative results and documents have been reviewed as part of the pre-operative evaluation. [facility] Past Medical History Medical History (Updated 10/07/21 @ 10:46 by Levar Connolly MD) Cardiomyopathy Obesity Sarcoid Sarcoidosis of lung Smoker Uterine prolapse Surgical History Surgical History (Updated 08/05/21 @ 22:40 by Stuart Pierre MD) No pertinent past surgical history Family History Family History Grandparent Family history of gallbladder disease Father Asthma Mother Patient's mother is in good health Other Cerebrovascular accident Diabetes mellitus Social History Social History Smoking packs per day: 1 Smoking cigarettes per day: 20.0 Years smoked: 5 Smoking pack-years: 5.00 Smoking status: Current every day smoker Tobacco type: cigarettes Alcohol intake: current Drinks per week: 1 Alcohol use details: 1 NIGHT A WEEK - 4 OR SO Substance use: current Substance use type: marijuana Last use: 10/04/19 Living arrangements: with family Gender identity (if verbalized by the patient): Female Spiritual care concerns: No Anes - Eval Final PreProcedure Day of Procedure 10/07/21 10:44 Patient weight: obese Heart: regular rate and rhythm Lungs: decreased breath sounds Airway: Mallampati scale class II Neurological: alert and oriented Last oral intake: >/= 8 hours ASA classification: III Emergent: no Anesthetic plan: proceed Anesthesia type and monitoring: general ETT and standard monitoring Results Review: All pre-operative results and documents have been reviewed as part of the pre-operative evaluation. Informed Consent: The patient's anesthetic plan and its attendant risks and benefits were discussed with the patient/family/POA. Questions were solicited and answers provided to the satisfaction of the patient/family/POA.
[2021-10-08 06:20] VITALS: BP 108/64; PULSE 77; RESP 18; TEMP 36.5; O2SAT 99
[2021-10-08] MEDS: LACTATED RINGERS 1,000 ML 30 ML IV CONT (06:20)
--- NOTE | 2021-10-08 07:16 | WPDHPUPDATE1 ---
History and Physical Update Update Date/Time: 10/08/21 07:16 History and Physical has been reviewed, including an updated exam of the patient. There are NO changes in the patient's condition. Risks, benefits, and alternatives have been discussed and questions answered. Patient agrees to proceed with procedure.
[2021-10-08] MEDS: LIDO 1%/EPINEPHRINE 1:100,000 20 ML VIAL 10 ML INFILTRATE (07:52)
[2021-10-08 08:32] VITALS: BP 101/56; PULSE 95; RESP 15; O2SAT 100
[2021-10-08 09:00] VITALS: BP 106/70; PULSE 74; RESP 14; O2SAT 100
--- NOTE | 2021-10-08 09:12 | W.PM.PROC2 ---
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 She demonstrated the snapping again of the extensors to the index finger. She was then taken to the operating room where she was placed supine on the operating table. She was given IV sedation and the extremity was prepped and draped in the usual fashion. A time-out was held and confirmed the site was marked for a transverse incision and locally infiltrated with 1% lidocaine with epinephrine. The extremity was exsanguinated and the tourniquet inflated to 250 mmHg. The transverse incision was made and the extensor tendons were exposed. A beneath them laid the mass which appeared to be hard bony and part thickening of ligamentous tissue over the top of that. The ligamentous tissue comprising the insertion of the extensor carpi radialis longus and joint capsule was incised as a proximally based flap. The bony mass was reduced with a rongeur and a quarter-inch osteotome. Bone was removed in small fragments. The insertion of the extensor carpi radialis brevis was thinned about 50% with scissors. The flap was repaired to original position with 3-0 Ethibond sutures The skin was closed with interrupted intradermal 4-0 Monocryl sutures. A soft bandage with Dick wrap was applied. The tourniquet was released prior to skin closure. The patient was discharged with a prescription for hydrocodone 325 number 7 Estimated Blood Loss 1 Drains No Packing No Pathology None sent Complications No immediate complications Condition Stable Disposition Same day
[2021-10-08 09:20] VITALS: BP 105/77; PULSE 62; RESP 14
== END 2021-10-08 09:28 | disposition home or self-care (01) ==
PROVIDERS: PCP Internal Medicine; Visit Provider Plastic Surgery
PROC: (CPT 26200; principal; 2021-10-08 07:30)
DX: D16.11 Benign neoplasm of short bones of right upper limb (principal); F17.210 Nicotine dependence, cigarettes, uncomplicated; F12.90 Cannabis use, unspecified, uncomplicated
CPT/HCPCS: 26200; A9270; J2250; J2405; J2704; J3010; J7120

== ENCOUNTER 2022-06-09 18:19 | Emergency (ER) | payer OTHER, SELFPAY ==
[2022-06-09 18:20] VITALS: BP 115/80; PULSE 98; RESP 16; TEMP 37.2; O2SAT 100
[2022-06-09] MEDS: FAMOTIDINE 20 MG/2 ML VIAL IV PUSH (18:40)
[2022-06-09] MEDS: ONDANSETRON INJ 4 MG/2 ML VIAL IV PUSH (18:40)
[2022-06-09] MEDS: SODIUM CHLORIDE 0.9% IV 1,000 ML 999 ML IV CONT (18:40)
--- NOTE | 2022-06-09 18:43 | ED.NAVMDI ---
HPI - Nausea/Vomiting/Diarrhea General Chief complaint: Nausea/Vomiting/Diarrhea <Mila Novak PA-C - Last Filed: 06/09/22 21:36> Stated complaint: stomach issues <Mila Novak PA-C - Last Filed: 06/09/22 21:36> Time Seen by Provider: 06/09/22 18:28 <Mila Novak PA-C - Last Filed: 06/09/22 21:36> History of Present Illness HPI Narrative: Patient is a 31-year-old female here for evaluation of nausea x5 days. States that she feels nauseated before, during or after any meals. States that she has had abdominal bloating for the past month. She denies any pain in her abdomen. She has had no vomiting, diarrhea, constipation, fevers or chills, dysuria, urgency or frequency, vaginal discharge. <Mila Novak PA-C - Last Filed: 06/09/22 21:36> Related Data Allergies/Adverse reactions: Allergies Allergy/AdvReac Type Severity Reaction Status Date / Time No Known Allergies Allergy Verified 06/09/22 18:29 <Mila Novak PA-C - Last Filed: 06/09/22 21:36> Review of Systems Review of Systems: Gen.: Denies fevers or chills Eyes: Denies eye pain or visual change ENT: Denies congestion Respiratory: Denies shortness of breath or cough CV: Denies chest pain or palpitations GI: reports abdominal bloating, nausea : denies burning, urgency, frequency or hematuria Musculoskeletal: Denies back pain or muscle pain Neuro: Denies numbness, tingling, weakness or focal weakness Skin: Denies rash Except as documented, all other systems reviewed and negative <Mila Novak PA-C - Last Filed: 06/09/22 21:36> [facility] Past Medical History Medical History: Medical History Cardiomyopathy Obesity Sarcoid Sarcoidosis of lung Smoker Uterine prolapse <Mila Novak PA-C - Last Filed: 06/09/22 21:36> Surgical History Surgical History: Surgical History No pertinent past surgical history <Mila Novak PA-C - Last Filed: 06/09/22 21:36> Family History Family History: Family History Grandparent Family history of gallbladder disease Father Asthma Mother Patient's mother is in good health Other Cerebrovascular accident Diabetes mellitus <Mila Novak PA-C - Last Filed: 06/09/22 21:36> Social History Social History: Social History Smoking packs per day: 1 Smoking cigarettes per day: 20.0 Years smoked: 5 Smoking pack-years: 5.00 Smoking status: Current every day smoker Tobacco type: cigarettes Alcohol intake: current Drinks per week: 1 Alcohol use details: 1 NIGHT A WEEK - 4 OR SO Substance use: current Substance use type: marijuana Last use: 10/04/19 Living arrangements: with family Gender identity (if verbalized by the patient): Female Spiritual care concerns: No <Mila Novak PA-C - Last Filed: 06/09/22 21:36> Exam Narrative: APPEARANCE: Well appearing, no pain in distress, well-nourished. Head: Normocephalic and atraumatic. EYES: PERRLA/EOMI, conjunctivae clear NOSE: No nasal drainage EARS: External ear normal in appearance THROAT: Oropharynx is clear. Mucous membranes are moist. NECK: Supple. No adenopathy, no masses. RESPIRATORY: Airway patent, respirations nonlabored. Clear to auscultation bilaterally, no rales, rhonchi, wheezing. CARDIOVASCULAR: Regular rate and rhythm without murmurs, rubs, or gallops. ABDOMINAL: Normoactive bowel sounds. Soft, nontender, nondistended. No rebound tenderness or guarding. MUSCULOSKELETAL: Extremities are warm and well-perfused. Moves all extremities well. No edema. NEURO: Normal speech. No focal neurologic deficits. SKIN: Skin is warm and dry. No rashes. PSYCHIATRIC: Normal affect/mood..
[2022-06-09 18:53] LABS: Basophils Percent Auto 0.2 % (0.2-1.2); Eosinophils Absolute Auto 0.3 K/mm3 (0-0.3); Eosinophils Percent Auto 2.4 % (0-4.4); Hematocrit 39.6 % (37.0-47.0); Hemoglobin 13.9 g/dL (12.0-15.0); Immature Granulocyte Absolute 0.07 K/mm3 (0.00-0.031); Immature Granulocyte Percent A 0.6 % (0-0.5); Lymphocytes Absolute Auto 2.61 K/mm3 (0.9-3.2); Lymphocytes Percent Auto 21.5 % (18.3-44.2); Mean Corpuscular HGB Conc 35.1 g/dl (32-36); Mean Corpuscular Hemoglobin 34.1 pg (26-34); Mean Corpuscular Volume 97.1 fl (80-100); Mean Platelet Volume 10.7 fl (7.4-10.4); Monocytes Percent Auto 7.8 % (2.6-8.5); Neutrophils Absolute Auto 8.2 K/mm3 (1.3-6.7); Neutrophils Percent Auto 67.5 % (45.5-73.1); Platelet Count Result 225 k/mm3 (150-375); Red Blood Count 4.08 M/mm3 (4.2-5.4); Red Cell Distribution Width 12.6 % (11.5-14.5); White Blood Count 12.2 K/mm3 (4.5-10.0)
[2022-06-09 18:53] LABS: Appearance Urine Cloudy (Clear); Bacteria Urine None Seen /hpf; Bilirubin Urine Negative (Negative); Blood Urine Negative (Negative); Color Urine Yellow (Yellow); Glucose Urine UA Negative (Negative); Ketones Urine Negative (Negative); Leukocyte Esterase Ur 1+ LEU/UL (Negative); Nitrate Urine Negative (Negative); Non Pathogenic Casts 0-2; Protein Urine Negative (Negative); RBC Urine 0-2 /hpf (0-2); Specific Grav Ur 1.023 (1.001-1.035); Squamous Epithelial Cell Urine Occasional /hpf (Few); WBC Urine 21-50 /hpf; pH Urine 6.5 (5.0-9.0)
[2022-06-09 19:04] LABS: Add Urine Microscopic? YES
[2022-06-09 20:02] LABS: Alanine Aminotransferase 25 U/L (6-35); Albumin Level 4.3 g/dL (3.5-5.1); Alkaline Phosphatase 67 U/L (38-126); Anion Gap 7 mmol/L (8-16); Aspartate Amino Transferase 30 U/L (14-36); Bilirubin,Total 0.4 mg/dL (0.2-1.3); Blood Urea Nitrogen 9 mg/dL (7-17); Calcium 8.6 mg/dL (8.4-10.2); Carbon Dioxide 25 mmol/L (22-30); Chloride 107 mmol/L (98-107); Estimated CRCL calculation 123 ml/min; Estimated Glomerular Filt Rate > 60; Glucose 87 mg/dL (65-110); Lipase 84 U/L (23-300); Potassium 3.8 mmol/L (3.4-5.0); Sodium 139 mmol/L (137-145)
== END 2022-06-09 20:52 | disposition home or self-care (01) ==
PROVIDERS: Emergency Medicine; Emergency Provider Physician Assistant
DX: N39.0 Urinary tract infection, site not specified (principal); I42.9 Cardiomyopathy, unspecified; E66.9 Obesity, unspecified; Z68.27 Body mass index [BMI] 27.0-27.9, adult; D86.0 Sarcoidosis of lung; F17.210 Nicotine dependence, cigarettes, uncomplicated
CPT/HCPCS: 36415; 80053; 81001; 81025; 83690; 85025; 87086; 96361; 96374; 96375; 99284; J2405; J7030

== ENCOUNTER 2022-07-09 02:11 | Day surgery (SDC) | payer OTHER, SELFPAY ==
[2022-07-02 11:55] VITALS: BMI 24.7
--- NOTE | 2022-07-02 12:04 | PC.NURSE ---
Report to the Outpatient Waiting Room, entrance under the green pavilion located off [facility], at time 1030 on date 07/09/22. Planned Procedure Time: 1230. Time changes happen often and if your time is changed the preop area will call you the afternoon before. - You and your visitor will be asked to self-screen and do not enter if you have any COVID symptoms. - A mask is optional within the hospital at this time. Patients may have clear liquids (water, carbonated beverages, clear teas, apple juice) until 3 hours prior to surgery with a maximum of 20 ounces. - No food from midnight until time of surgery Take the following medications with a SIP of water the morning of surgery: N/A DO NOT STOP ANY OF YOUR OTHER PRESCRIPTION MEDICATIONS PRIOR TO SURGERY EXCEPT THE FOLLOWING Medications to discontinue per physician: N/A Date to take last dose: N/A Please no make-up, nail chinese, hairspray, perfume, deodorant, or body powder the day of surgery. No jewelry (including any body piercings) or valuables the day of surgery, leave them at home. Please take a shower or bath the night before, or the morning of, surgery with an antibacterial soap. Wear comfortable, loose fitting clothing. - Jewelry must be removed prior to entering the operating room. Rings and piercings that are not removed may be cut off. - The hospital will not accept responsibility for valuables. - Please leave all valuables, including medications, at home the day of surgery. If you are going home after surgery, a licensed driver messenger must drive you home. - NO public transportation without another adult if you receive anesthesia. - We recommend that an adult stay with you for 24 hours following discharge. - We also recommend that you do not drive, make important decision, drink alcoholic beverages, or take any drugs that were not prescribed by your health care provider for at least 24 hours after your discharge time. Follow any additional instructions given to you from your surgeon. If you or anyone in your household have experienced Covid symptoms in the past week, please notify your surgeon or the nurse liaison at the phone number below for possible testing. Telephone instructions given to PT Calixto KEY and asked if any additional questions and then verbalized understanding. Patient advised to call surgeon office or pre surgery nurse liaison [phone] if any additional questions.
--- NOTE | 2022-07-06 12:44 | PM.IMHP ---
H&P: HPI History of Present Illness Date/Time: 07/06/22 12:44 Chief Complaint: Pelvic pain/left ovarian cyst Narrative: Patient is admitted for laparoscopy possible left ovarian cystectomy secondary to ovarian cyst and pelvic pain. Risks and benefits reviewed including min exclusive of , aspiration, bleeding, transfusion, perforation injury to bowel, bladder, ureters, or other internal organs and need for open laparotomy. She received the [employer] handout entitled laparoscopy. She had all questions answered. She asked to proceed PMFSH Past Medical History Medical History Cardiomyopathy Obesity Sarcoid Sarcoidosis of lung Smoker Uterine prolapse Surgical History Surgical History No pertinent past surgical history Family History Family History Grandparent Family history of gallbladder disease Father Asthma Mother Patient's mother is in good health Other Cerebrovascular accident Diabetes mellitus Social History Social History Smoking packs per day: 1 Smoking cigarettes per day: 20.0 Years smoked: 7 Smoking pack-years: 7.00 Smoking status: Current every day smoker Tobacco type: cigars Smoking end date: 06/05/21 Additional smoking assessment comments: NOW 4 BLK/DAY Alcohol intake: current Drinks per week: 4 Alcohol use details: 1 NIGHT A WEEK - 4 OR SO Substance use: current Substance use type: marijuana Last use: 10/04/19 Living arrangements: with friend(s) Gender identity (if verbalized by the patient): Female Spiritual care concerns: No Meds Home Medications and Allergies Home Medications Medication Instructions Recorded Confirmed Type No Home Medications 07/02/22 07/02/22 History Allergies Allergy/AdvReac Type Severity Reaction Status Date / Time No Known Allergies Allergy Verified 07/02/22 11:55 Exam Const: General: cooperative, healthy appearing, comfortable and obese Orientation/consciousness: oriented to person, oriented to place and oriented to time HENMT: Head: normal to inspection Resp: Effort & Inspection: normal respiratory effort Cardio: Rate: regular rate Rhythm: regular rhythm Heart sounds: S1 normal heart sound present and S2 normal heart sound present GI: Inspection: normal to inspection : External Female Exam: normal external appearance Speculum Exam - Vagina: normal appearance of the vagina Speculum Exam - Cervix: Cervix absent Bimanual exam- vagina & uterus: uterus absent Bimanual Exam- Adnexa, other: tender bilaterally Assessment and Plan Assessment and plan (1) Pelvic pain: Code(s): R10.2 - Pelvic and perineal pain Status: Acute (2) Left ovarian cyst: Code(s): N83.202 - Unspecified ovarian cyst, left side Status: Acute Plan Laparoscopic left cystectomy
--- NOTE | 2022-07-08 13:54 | WPDANESEPPF ---
Anes - Initial Pre Proc Eval Procedure: Operation Date: 07/09/22 12:30 Proposed Procedures p Diagnostic Laparoscopy with Left Ovarian Cystectomy - Dajuan Abbasi MD Date/Time: 07/08/22 13:54 Surgeon: Dajuan Abbasi MD Pre Op Diagnosis: Lt Ovarian Cyst, Pelvic Pain Patient Data Age: 31 Gender: F Height: 1.57 m Weight: 61.25 kg Allergies Allergy/AdvReac Type Severity Reaction Status Date / Time No Known Allergies Allergy Verified 07/09/22 10:16 Home Medications Medication Instructions Recorded Confirmed Type hydrocodone 5 mg-acetaminophen 325 1 tablet PO Q4H PRN pain #20 tabs 07/09/22 Rx mg tablet Patient hx anesthesia problems: none Family hx anesthesia problems: none Results Review: All pre-operative results and documents have been reviewed as part of the pre-operative evaluation. [facility] Past Medical History Medical History Cardiomyopathy Obesity Sarcoid Sarcoidosis of lung Smoker Uterine prolapse Surgical History Surgical History No pertinent past surgical history Family History Family History Grandparent Family history of gallbladder disease Father Asthma Mother Patient's mother is in good health Other Cerebrovascular accident Diabetes mellitus Social History Social History Smoking packs per day: 1 Smoking cigarettes per day: 20.0 Years smoked: 7 Smoking pack-years: 7.00 Smoking status: Current every day smoker Tobacco type: cigars Smoking end date: 06/05/21 Additional smoking assessment comments: NOW 4 BLK/DAY Alcohol intake: current Drinks per week: 4 Alcohol use details: 1 NIGHT A WEEK - 4 OR SO Substance use: current Substance use type: marijuana Last use: 10/04/19 Living arrangements: with friend(s) Gender identity (if verbalized by the patient): Female Spiritual care concerns: No Anes - Eval Final PreProcedure Day of Procedure 07/08/22 13:54 Patient weight: obese Heart: regular rate and rhythm Lungs: decreased breath sounds Airway: Mallampati scale class II Neurological: alert and oriented Last oral intake: >/= 8 hours ASA classification: III Emergent: no Anesthetic plan: proceed Anesthesia type and monitoring: general ETT and standard monitoring Results Review: All pre-operative results and documents have been reviewed as part of the pre-operative evaluation. Informed Consent: The patient's anesthetic plan and its attendant risks and benefits were discussed with the patient/family/POA. Questions were solicited and answers provided to the satisfaction of the patient/family/POA.
[2022-07-09] VITALS (9 sets, daily range): BP systolic 104–125; BP diastolic 56–84; PULSE 66–97; RESP 12–18; TEMP 36.4; O2SAT 99–100
--- NOTE | 2022-07-09 06:06 | WPDHPUPDATE1 ---
History and Physical Update Update Date/Time: 07/09/22 06:06 History and Physical has been reviewed, including an updated exam of the patient. There are NO changes in the patient's condition. Risks, benefits, and alternatives have been discussed and questions answered. Patient agrees to proceed with procedure.
--- NOTE | 2022-07-09 10:33 | WPDANESEPPF ---
Anes - Initial Pre Proc Eval Procedure: Operation Date: 07/09/22 12:30 Proposed Procedures p Diagnostic Laparoscopy with Left Ovarian Cystectomy - Dajuan Abbasi MD Date/Time: 07/09/22 10:33 Surgeon: Dajuan Abbasi MD Pre Op Diagnosis: Lt Ovarian Cyst, Pelvic Pain Patient Data Age: 31 Gender: F Height: 1.57 m Weight: 62.1 kg Last Vital Signs Temp 36.4 C 07/09/22 10:09 Pulse 83 07/09/22 10:09 Resp 18 07/09/22 10:09 BP 114/71 07/09/22 10:09 Pulse Ox 100 07/09/22 10:09 O2 Del Method Room Air 07/09/22 10:09 Allergies Allergy/AdvReac Type Severity Reaction Status Date / Time No Known Allergies Allergy Verified 07/09/22 10:16 Home Medications Medication Instructions Recorded Confirmed Type hydrocodone 5 mg-acetaminophen 325 1 tablet PO Q4H PRN pain #20 tabs 07/09/22 Rx mg tablet Patient hx anesthesia problems: none Family hx anesthesia problems: none Results Review: All pre-operative results and documents have been reviewed as part of the pre-operative evaluation. [facility] Past Medical History Medical History Cardiomyopathy Obesity Sarcoid Sarcoidosis of lung Smoker Uterine prolapse Surgical History Surgical History No pertinent past surgical history Family History Family History Grandparent Family history of gallbladder disease Father Asthma Mother Patient's mother is in good health Other Cerebrovascular accident Diabetes mellitus Social History Social History Smoking packs per day: 1 Smoking cigarettes per day: 20.0 Years smoked: 7 Smoking pack-years: 7.00 Smoking status: Current every day smoker Tobacco type: cigars Smoking end date: 06/05/21 Additional smoking assessment comments: NOW 4 BLK/DAY Alcohol intake: current Drinks per week: 4 Alcohol use details: 1 NIGHT A WEEK - 4 OR SO Substance use: current Substance use type: marijuana Last use: 10/04/19 Living arrangements: with friend(s) Gender identity (if verbalized by the patient): Female Spiritual care concerns: No Anes - Eval Final PreProcedure Day of Procedure 07/09/22 10:33 Patient weight: normal Heart: regular rate and rhythm Lungs: decreased breath sounds Airway: Mallampati scale class II Neurological: alert and oriented Last oral intake: >/= 8 hours ASA classification: III Emergent: no Anesthetic plan: proceed Anesthesia type and monitoring: general ETT and standard monitoring Results Review: All pre-operative results and documents have been reviewed as part of the pre-operative evaluation. Informed Consent: The patient's anesthetic plan and its attendant risks and benefits were discussed with the patient/family/POA. Questions were solicited and answers provided to the satisfaction of the patient/family/POA.
[2022-07-09] MEDS: LACTATED RINGERS 1,000 ML 30 ML IV CONT (10:39)
[2022-07-09] MEDS: KETOROLAC 15 MG/ML VIAL (*BKC) IV PUSH (10:39)
[2022-07-09] MEDS: ACETAMINOPHEN 500 MG TABLET 1000 MG PO (10:39)
--- NOTE | 2022-07-09 11:41 | W.PM.PROC2 ---
Procedure Note - Detailed Date of Procedure 07/09/22 Pre-op Diagnosis Lt Ovarian Cyst, Pelvic Pain Post-op Diagnosis Other ([facility]) Procedure Performed laparoscopic destruction of endometriosis Surgeon Dajuan Abbasi MD Anesthesia General Indications this is a 31-year-old status post hysterectomy and right salpingo-oophorectomy with pelvic pain and small ovarian cyst Findings absent uterus right ovary to. Endometriosis along the vaginal cuff. Small simple ovarian cyst which was drained difficulty appendix appeared within normal limits. Gallbladder was surgically absent Description of Procedure the patient was prepped draped in the normal sterile fashion placed in dorsal lithotomy position. Under excellent general trach anesthesia weighted speculum placed in posterior fornix vagina. a sponge stick was placed in the vagina and the bladder draining clear urine. The weighted speculum was removed and gloves were changed. Supraumbilical incision made the Veress needle passed in the abdomen. Abdomen filled with CO2 gas to 15mm Hg. The 5mm trocar advanced in the abdomen. Downside visualized no retained gas reattached. Patient placed in Trendelenburg and a suprapubic incision made. The 5mm trocar advanced under direct visualization assuring no injury. The above findings were seen there was some adhesions from the colon to the vaginal cuff and this was sharply dissected. Irrigation was undertaken until clear small areas of endometriosis were seen along the vaginal cuff and these were point cauterized at 35 w per 2nd irrigation undertaken. Small ovarian cyst was seen and this was drained with the monopolar cautery. The appendix appeared grossly within normal limits. This liver edge appeared normal and the gallbladder was surgically absent. The incisions were then closed after removing the trocars the gas from the abdomen. Patient went to recovery in satisfactory condition. All sponge, needle, instrument counts were correct. There were no immediate complications Estimated Blood Loss 5 Drains No Packing No Pathology None sent Complications No immediate complications Condition Stable Disposition PACU
[2022-07-09] MEDS: fentaNYL CITRATE INJ (*CRX) 100 MCG/2 ML VIAL 25 MCG IV PUSH ×8 (11:52→12:28)
[2022-07-09] MEDS: ONDANSETRON INJ 4 MG/2 ML VIAL IV PUSH (12:01)
[2022-07-09] MEDS: oxyCODONE HCL (*CRX) 5 MG TAB IR PO (13:34)
--- NOTE | 2022-07-09 14:01 | SUR.PHASEII ---
1355: Patient vitals are stable. Patient is unhooked from monitors and dressed. She is just waiting for her ride to get here.
== END 2022-07-09 14:36 | disposition home or self-care (01) ==
PROVIDERS: Visit Provider Obstetrics & Gynecology
PROC: (CPT 49320; principal; 2022-07-09 12:30)
DX: N83.292 Other ovarian cyst, left side (principal); N80.8 Other endometriosis; R10.2 Pelvic and perineal pain; Z90.710 Acquired absence of both cervix and uterus; F12.90 Cannabis use, unspecified, uncomplicated; F17.290 Nicotine dependence, other tobacco product, uncomplicated
CPT/HCPCS: 58662; 36415; 86850; 86900; 86901; A9270; J0330; J1100; J1885; J2250; J2405; J2704; J3010; J7120

== ENCOUNTER 2023-02-23 19:54 | Emergency (ER) | payer SELFPAY ==
--- NOTE | ~2023-02-23 | CT_ITS ---
EXAMINATION: CT abdomen pelvis w con DATE: 02/23/2023 23:15 INDICATION: Left flank pain. Periumbilical abdominal pain. TECHNIQUE: Computed tomography (CT) of the abdomen and pelvis was performed with 100 mL Omnipaque 350 intravenous contrast. Automated exposure control and iterative reconstruction technique were employe d. The dose-length product was 292.23 mGy-cm. COMPARISON: CT abdomen and pelvis 03/22/20 FINDINGS: The visualized portions of the lung bases are clear without pneumonia or pleural effusion. The heart size is normal. No pericardial effusion. The liver is normal. There are changes of cholecys tectomy. The spleen, pancreas, adrenal glands, and kidneys are normal. There are no dilated loops of bowel. The appendix is normal. There are no pathologically enlarged lymph nodes. There is a 2.1 cm co rpus luteum cyst in left ovary. There is physiologic fluid in the pelvis. There is mild thoracic and lumbar spondylosis. IMPRESSION: 1. No etiology for the patient's symptoms. Reviewed, dictated and finalized at location E. [facility]
[2023-02-23 20:02] VITALS: BP 110/64; PULSE 76; RESP 18; TEMP 36.8; O2SAT 100
[2023-02-23 20:29] LABS: Basophils Percent Auto 0.4 % (0.2-1.2); Eosinophils Absolute Auto 0.3 K/mm3 (0-0.3); Eosinophils Percent Auto 4.4 % (0-4.4); Hematocrit 39.2 % (37.0-47.0); Hemoglobin 13.2 g/dL (12.0-15.0); Immature Granulocyte Absolute 0.02 K/mm3 (0.00-0.031); Immature Granulocyte Percent A 0.3 % (0-0.5); Lymphocytes Absolute Auto 2.11 K/mm3 (0.9-3.2); Lymphocytes Percent Auto 30.3 % (18.3-44.2); Mean Corpuscular HGB Conc 33.7 g/dl (32-36); Mean Corpuscular Hemoglobin 32.8 pg (26-34); Mean Corpuscular Volume 97.3 fl (80-100); Mean Platelet Volume 11.3 fl (7.4-10.4); Monocytes Absolute Auto 0.5 K/mm3 (0.1-0.6); Monocytes Percent Auto 7.6 % (2.6-8.5); Platelet Count Result 215 k/mm3 (150-375); Red Blood Count 4.03 M/mm3 (4.2-5.4); Red Cell Distribution Width 11.9 % (11.5-14.5)
[2023-02-23 20:37] LABS: Alanine Aminotransferase 23 U/L (6-35); Albumin Level 4.5 g/dL (3.5-5.1); Alkaline Phosphatase 60 U/L (38-126); Anion Gap 7 mmol/L (8-16); Aspartate Amino Transferase 23 U/L (14-36); Bilirubin,Total 0.2 mg/dL (0.2-1.3); Blood Urea Nitrogen 14 mg/dL (7-17); Calcium 9.2 mg/dL (8.4-10.2); Carbon Dioxide 25 mmol/L (22-30); Chloride 105 mmol/L (98-107); Estimated CRCL calculation 79 ml/min; Estimated Glomerular Filt Rate > 60; Glucose 97 mg/dL (65-110); Lipase 274 U/L (23-300); Potassium 4.2 mmol/L (3.4-5.0); Sodium 137 mmol/L (137-145)
[2023-02-23 21:11] LABS: Appearance Urine Cloudy (Clear); Bacteria Urine None Seen /hpf; Bilirubin Urine Negative (Negative); Blood Urine Negative (Negative); Color Urine Yellow (Yellow); Glucose Urine UA Negative (Negative); Ketones Urine Negative (Negative); Leukocyte Esterase Ur Negative LEU/UL (Negative); Nitrate Urine Negative (Negative); Non Pathogenic Casts 0-2; Protein Urine Negative (Negative); RBC Urine 0-2 /hpf (0-2); Specific Grav Ur 1.027 (1.001-1.035); Squamous Epithelial Cell Urine Occasional /hpf (Few); Urobilinogen Urine 0.2 mg/dL (<2.0); WBC Urine 0-5 /hpf
[2023-02-23 21:12] LABS: Add Urine Microscopic? YES
--- NOTE | 2023-02-23 22:31 | ED.GENADULT ---
[facility] - General Adult General Chief complaint: Abdominal Pain Stated complaint: abd pain Time Seen by Provider: 02/23/23 22:23 Source: patient Mode of arrival: ambulatory Limitations: no limitations History of Present Illness HPI narrative: This is a 32-year-old female who presents to the ED with chief complaint of periumbilical abdominal pain for the past couple of days and worsening today. Reports that it has occasionally radiated into the left flank area. She also reports that it radiates to the right sometimes. States she took Tylenol roughly 6 hours ago but that has a minimal effect. Reports that her last bowel movement was this morning and they have been normal. Denies any urinary problems. Denies fevers, chills, chest pain, shortness of breath, cough. Past surgical history of hysterectomy, cholecystectomy. Related Data Allergies Allergy/AdvReac Type Severity Reaction Status Date / Time No Known Allergies Allergy Verified 02/23/23 22:30 Review of Systems Review of Systems: All systems as dictated in HPI [facility] Past Medical History Medical History Cardiomyopathy Obesity Sarcoid Sarcoidosis of lung Smoker Uterine prolapse Surgical History Surgical History No pertinent past surgical history Family History Family History Grandparent Family history of gallbladder disease Father Asthma Mother Patient's mother is in good health Other Cerebrovascular accident Diabetes mellitus Social History Social History Smoking packs per day: 1 Smoking cigarettes per day: 20.0 Years smoked: 7 Smoking pack-years: 7.00 Smoking status: Current every day smoker Tobacco type: cigars Smoking end date: 06/05/21 Additional smoking assessment comments: NOW 4 BLK/DAY Alcohol intake: current Drinks per week: 4 Alcohol use details: 1 NIGHT A WEEK - 4 OR SO Substance use: current Substance use type: marijuana Last use: 10/04/19 Living arrangements: with friend(s) Gender identity (if verbalized by the patient): Female Spiritual care concerns: No Exam Narrative: GENERAL: Well-appearing, well-nourished, and in no acute distress. HEAD: Normocephalic, atraumatic. EYES: PERRLA and EOMI. ENT: Nares clear, no rhinorrhea or epistaxis. Mucous membranes moist. Oropharynx without tonsillar hypertrophy exudate or other lesions. NECK: Supple. No adenopathy or masses. CHEST: No respiratory distress. Clear to auscultation. No wheezes rales or rhonchi HEART: Regular rate and rhythm. No murmur heard. Normal peripheral pulses. ABDOMEN: Left flank tenderness present. Negative right flank tenderness. Mild tenderness in the periumbilical region. Soft, otherwise nontender, nondistended, normal active bowel sounds. MSK: Normal range of motion. No edema. SKIN: Warm, dry, no rash. NEURO: Alert and oriented x3. No focal deficits. PSYCH: Normal mood and affect. Course Vital Signs Vital signs: Vital Signs Temperature 98.3 F 02/23/23 20:02 Pulse Rate 76 02/23/23 20:02 Respiratory Rate 18 02/23/23 20:02 Blood Pressure 110/64 02/23/23 20:02 Pulse Oximetry 100 02/23/23 20:02 Oxygen Delivery Room Air 02/23/23 20:02 Temperature 98 F 02/23/23 23:31 Pulse Rate 73 02/23/23 23:31 Respiratory Rate 15 02/23/23 23:31 Blood Pressure 102/58 L 02/23/23 23:31 Pulse Oximetry 100 02/23/23 23:31 Oxygen Delivery Room Air 02/23/23 20:02 Medical Decision Making MDM Narrative Medical decision making narrative: This is a 32-year-old female who presents to the ED with chief complaint of abdominal pain for the past 5 days. Vitals are normal. Exam does show some left flank tenderness and periumbilical tenderness. Lab work shows
[2023-02-23] MEDS: MORPHINE SULFATE (*CRX) 4 MG/ML INJ IV PUSH (22:59)
[2023-02-23] MEDS: ONDANSETRON INJ 4 MG/2 ML VIAL IV PUSH (22:59)
[2023-02-23 23:31] VITALS: BP 102/58; PULSE 73; RESP 15; TEMP 36.6; O2SAT 100
== END 2023-02-23 23:58 | disposition home or self-care (01) ==
PROVIDERS: Student in an Organized Health Care Education/Training Program; Emergency Provider Physician Assistant
DX: R10.33 Periumbilical pain (principal); I42.9 Cardiomyopathy, unspecified; D86.0 Sarcoidosis of lung; E66.9 Obesity, unspecified; Z68.23 Body mass index [BMI] 23.0-23.9, adult; F17.290 Nicotine dependence, other tobacco product, uncomplicated; Z90.710 Acquired absence of both cervix and uterus; Z90.49 Acquired absence of other specified parts of digestive tract
CPT/HCPCS: 36415; 74177; 80053; 81001; 81025; 83690; 85025; 96374; 96375; 99284; J2270; J2405; Q9967

== ENCOUNTER 2023-03-04 05:34 | Emergency (ER) | payer SELFPAY ==
[2023-03-04 05:35] VITALS: BP 114/67; PULSE 80; RESP 18; TEMP 36.5; O2SAT 100
[2023-03-04 05:57] LABS: Basophils Percent Auto 0.5 % (0.2-1.2); Eosinophils Absolute Auto 0.4 K/mm3 (0-0.3); Eosinophils Percent Auto 6.1 % (0-4.4); Hematocrit 37.7 % (37.0-47.0); Hemoglobin 12.6 g/dL (12.0-15.0); Immature Granulocyte Absolute 0.03 K/mm3 (0.00-0.031); Immature Granulocyte Percent A 0.5 % (0-0.5); Lymphocytes Absolute Auto 1.65 K/mm3 (0.9-3.2); Lymphocytes Percent Auto 25.9 % (18.3-44.2); Mean Corpuscular HGB Conc 33.4 g/dl (32-36); Mean Corpuscular Hemoglobin 32.6 pg (26-34); Mean Corpuscular Volume 97.7 fl (80-100); Mean Platelet Volume 10.9 fl (7.4-10.4); Monocytes Absolute Auto 0.6 K/mm3 (0.1-0.6); Monocytes Percent Auto 9.9 % (2.6-8.5); Neutrophils Absolute Auto 3.6 K/mm3 (1.3-6.7); Neutrophils Percent Auto 57.1 % (45.5-73.1); Platelet Count Result 225 k/mm3 (150-375); Red Blood Count 3.86 M/mm3 (4.2-5.4); Red Cell Distribution Width 11.9 % (11.5-14.5); White Blood Count 6.4 K/mm3 (4.5-10.0)
[2023-03-04 06:09] LABS: Alanine Aminotransferase 23 U/L (6-35); Albumin Level 4.3 g/dL (3.5-5.1); Alkaline Phosphatase 61 U/L (38-126); Anion Gap 6 mmol/L (8-16); Aspartate Amino Transferase 25 U/L (14-36); Bilirubin,Total 0.4 mg/dL (0.2-1.3); Blood Urea Nitrogen 10 mg/dL (7-17); Carbon Dioxide 24 mmol/L (22-30); Chloride 110 mmol/L (98-107); Estimated CRCL calculation 91 ml/min; Estimated Glomerular Filt Rate > 60; Glucose 112 mg/dL (65-110); Lipase 132 U/L (23-300); Sodium 140 mmol/L (137-145)
--- NOTE | 2023-03-04 07:14 | ED.ABDPAIN ---
HPI - Abdominal Pain General Chief Complaint: Abdominal Pain Stated Complaint: IBS pain Time Seen by Provider: 03/04/23 06:55 History of Present Illness HPI narrative: 32 year old female presenting to the emergency department for evaluation of left flank pain and upper abdominal pain. Patient states this pain was similar to the pain she was having a few days ago when she was evaluated. Patient was told she has IBS. Patient has been taking Bentyl and states this improved. Patient worked last night states when she was at work she had worsening of her pain. Patient states she did not have access to Tylenol and was hoping to get some Tylenol here. Related Data Allergies Allergy/AdvReac Type Severity Reaction Status Date / Time No Known Allergies Allergy Verified 03/04/23 05:49 Review of Systems Review of Systems: All systems reviewed & are unremarkable except as noted in HPI and below PMFSH Past Medical History Medical History Cardiomyopathy Obesity Sarcoid Sarcoidosis of lung Smoker Uterine prolapse Surgical History Surgical History No pertinent past surgical history Family History Family History Grandparent Family history of gallbladder disease Father Asthma Mother Patient's mother is in good health Other Cerebrovascular accident Diabetes mellitus Social History Social History Smoking packs per day: 1 Smoking cigarettes per day: 20.0 Years smoked: 7 Smoking pack-years: 7.00 Smoking status: Current every day smoker Tobacco type: cigars Smoking end date: 06/05/21 Additional smoking assessment comments: NOW 4 BLK/DAY Alcohol intake: current Drinks per week: 4 Alcohol use details: 1 NIGHT A WEEK - 4 OR SO Substance use: current Substance use type: marijuana Last use: 10/04/19 Living arrangements: with friend(s) Gender identity (if verbalized by the patient): Female Spiritual care concerns: No Exam Narrative: APPEARANCE: Well appearing, no pain, no distress, well-nourished. HEAD: normocephalic, atraumatic. EYES: PERRLA/EOMI, conjunctivae clear. NECK: Supple. No adenopathy, no masses. RESPIRATORY: Airway patent, respirations nonlabored. Clear to auscultation bilaterally, no rales, rhonchi, wheezing. CARDIOVASCULAR: Regular rate and rhythm without murmurs rubs or gallops. ABDOMINAL: Soft, nontender, nondistended, normal bowel sounds MUSCULOSKELETAL: Moves all extremities. Strength/ROM intact, No edema, No calf tenderness. NEURO: Alert. Cranial nerves II through XII intact. Grossly intact SKIN: Warm, dry. Normal Color Course Course Emergency Course: 32-year-old female presenting ED for evaluation of abdominal pain. Patient is afebrile not tachycardic has no leukocytosis and a stable hemoglobin. No significant abnormalities on her CMP in patient's lipase is not elevated. Patient was provided Tylenol for pain control as requested. Patient is afebrile with no leukocytosis and a stable hemoglobin. Patient has normal CMP with no elevation of her T bili AST ALT alk-phos or lipase. UA shows no significant evidence of infection. Patient did feel improved with treatment in the ED. Patient was updated on results of her workup and patient was encouraged of close follow-up with her GI physician. All questions and concerns were addressed patient was well-appearing at time of discharge. Vital Signs Vital signs: Vital Signs Temperature 97.7 F 03/04/23 05:35 Pulse Rate 80 03/04/23 05:35 Respiratory Rate 18 03/04/23 05:35 Blood Pressure 114/67 03/04/23 05:35 Pulse Oximetry 100 03/04/23 05:35 Oxygen Delivery Room Air 03/04/23 05:35 Temperature 97.7 F 03/04/23 05:35 Pulse Rate 88 03/04/23 09:22 Respiratory Ra
[2023-03-04] MEDS: ACETAMINOPHEN 500 MG TABLET 1000 MG PO (07:40)
--- NOTE | 2023-03-04 07:50 | PC.NURSE ---
Assumed care of pt. Pt resting on stretcher. C/O abd pain 7, cramping in nature, denies N/V/D
[2023-03-04 08:12] LABS: Appearance Urine Cloudy (Clear); Bacteria Urine None Seen /hpf; Bilirubin Urine Negative (Negative); Blood Urine Negative (Negative); Color Urine Dark Yellow (Yellow); Glucose Urine UA Negative (Negative); Ketones Urine Trace mg/dL (Negative); Leukocyte Esterase Ur Negative LEU/UL (Negative); Nitrate Urine Negative (Negative); Non Pathogenic Casts 0-2; Protein Urine Negative (Negative); RBC Urine 0-2 /hpf (0-2); Specific Grav Ur 1.027 (1.001-1.035); Squamous Epithelial Cell Urine Occasional /hpf (Few); Urobilinogen Urine 0.2 mg/dL (<2.0); pH Urine 5.5 (5.0-9.0)
[2023-03-04 08:13] LABS: Add Urine Microscopic? YES
[2023-03-04 09:22] VITALS: BP 144/80; PULSE 88; RESP 16; O2SAT 98
== END 2023-03-04 09:35 | disposition home or self-care (01) ==
PROVIDERS: Emergency Medicine; Emergency Provider Emergency Medicine
DX: R10.10 Upper abdominal pain, unspecified (principal); D86.0 Sarcoidosis of lung; I42.9 Cardiomyopathy, unspecified; E66.9 Obesity, unspecified; Z68.23 Body mass index [BMI] 23.0-23.9, adult; F17.290 Nicotine dependence, other tobacco product, uncomplicated
CPT/HCPCS: 36415; 80053; 81001; 81025; 83690; 85025; 87077; 87086; 87088; 99283; A9270